=== PATIENT | female | born 1990 | race Caucasian/White ===

== ENCOUNTER 2017-06-19 15:22 | Emergency (ER) | payer OTHER ==
[~2017-06-19] VITALS: Ht 170.2 cm; Wt 54.0 kg
[2017-06-19 15:35] VITALS: BP_SYST 118
[2017-06-19 18:19] VITALS: BP_SYST 118
== END 2017-06-19 18:19 | disposition home or self-care (01) ==
LOC: SED 15:22
DX: R59.1 Generalized enlarged lymph nodes (principal)
CPT/HCPCS: 99284

== ENCOUNTER 2023-10-16 12:45 | Emergency (ER) | payer BC, OTHER ==
[~2023-10-16] VITALS: Ht 167.6 cm; Wt 61.2 kg
[2023-10-16 13:11] VITALS: BP_SYST 113; PULSE 84; RESP 16; TEMP 98; O2SAT 98
[2023-10-16] MEDS ORDERED: KETOROLAC TROMETHAMINE 30 MG VIAL IM ONE (15:15)
[2023-10-16] MEDS ORDERED: ACETAMINOPHEN 500 MG TABLET PO ONE (15:15)
[2023-10-16] MEDS ORDERED: ONDANSETRON 4 MG ODT TAB PO ONE (15:15)
[2023-10-16 15:48] LABS: BASOPHILS % (AUTO) 0.4 % (0.0-2.0); EOSINOPHILS # (AUTO) 0.2 K/uL (0.0-0.4); EOSINOPHILS % (AUTO) 1.6 % (0.0-4.0); HEMATOCRIT 41.2 % (36-48); HEMOGLOBIN 13.5 g/dL (12.0-16.0); LYMPHOCYTES # (AUTO) 2.6 K/uL (1.0-5.5); LYMPHOCYTES % (AUTO) 26.1 % (20.5-51.5); MEAN CORPUSCULAR HEMOGLOBIN 29 pg (27-31); MEAN CORPUSCULAR HGB CONC 33 % (32-36); MEAN CORPUSCULAR VOLUME 88 fL (79.0-98.0); MONOCYTES # (AUTO) 0.4 K/uL (0.0-1.0); MONOCYTES % (AUTO) 4.3 % (1.7-9.3); NEUTROPHILS # (AUTO) 6.6 K/uL (1.8-7.7); NEUTROPHILS % (AUTO) 67.6 % (40.0-70.0); PLATELET COUNT (AUTO) 380 K/uL (130-430); RED BLOOD CELL COUNT(AUTO) 4.67 MIL/uL (4.2-6.2); RED CELL DISTRIBUTION WIDTH 14.3 % (9.0-15.0); WHITE BLOOD COUNT (AUTO) 9.8 K/uL (4.8-10.8)
[2023-10-16 16:07] LABS: ALBUMIN 3.9 g/dL (3.4-4.8); CALCIUM 9.2 mg/dL (8.4-11.0); CREATININE 0.82 mg/dL (0.55-1.30); POTASSIUM 4.5 mmol/L (3.5-5.1); TOTAL BILIRUBIN 0.2 mg/dL (0.0-1.0); TOTAL PROTEIN, SERUM 7.5 g/dL (6.4-8.3)
[2023-10-16] MEDS ORDERED: ACET-2634 PO (18:10)
[2023-10-16] MEDS ORDERED: IMI50 PO (18:10)
[2023-10-16] MEDS ORDERED: IBUP-1969 PO (18:10)
== END 2023-10-16 18:24 | disposition home or self-care (01) ==
LOC: SED 12:45
DX: G43.909 Migraine, unspecified, not intractable, without status migrainosus (principal); R11.2 Nausea with vomiting, unspecified; H53.149 Visual discomfort, unspecified; Z79.899 Other long term (current) drug therapy
CPT/HCPCS: 99283; 80053; 84702; 85025; 36415; 96372; Q0162; J1885